=== PATIENT | female | born 1985 | race Caucasian/White ===

== ENCOUNTER 2016-05-14 19:23 | Emergency (ER) | payer OTHER ==
[2016-05-14 20:31] VITALS: BP 135/90
--- NOTE | 2016-05-14 20:51 | UC ---
Complaint Female HPI - HPI Summary HPI Summary: Patient was urinating and got pain in her lower abdomen with urination. lower abdomen remains tender and feels full. - History Of Current Complaint Chief Complaint: EDAbdPain Stated Complaint: RT SIDE NECK/STOMACH PAIN Time Seen by Provider: 05/14/16 20:35 Hx Obtained From: Patient Hx Last Menstrual Period: 04/30/16 ?: No Onset/Duration: Sudden Onset, Lasting Hours Timing: Intermittent Severity Initially: Moderate Severity Currently: Mild Character: Burning, Cramping Aggravating Factor(s): Urination Associated Signs And Symptoms: Positive: Negative - Allergies/Home Medications Allergies/Adverse Reactions: Allergies Allergy/AdvReac Type Severity Reaction Status Date / Time Aspirin Allergy Intermediate Hives Verified 05/14/16 20:31 Penicillins Allergy Unknown Verified 05/14/16 20:31 Reaction Details Home Medications: Home Medications Cetirizine* [ZyrTEC 10 MG TAB*] 10 mg PO DAILY 05/14/16 [History Confirmed 05/14] Levothyroxine TAB* [Synthroid 88 MCG TAB*] 88 mcg PO DAILY 05/14/16 [History Confirmed 05/14/16] PMH/Surg Hx/FS Hx/Imm Hx Previously Healthy: Yes Respiratory History Of: Reports: Asthma - Surgical History Surgical History: None - Family History Known Family History: Positive: Diabetes - Social History Alcohol Use: Occasionally Substance Use Type: None Smoking Status (MU): Never Smoked Tobacco Review of Systems Constitutional: Negative Skin: Negative Eyes: Negative ENT: Negative Respiratory: Negative Cardiovascular: Negative Gastrointestinal: Abdominal Pain Genitourinary: Dysuria Motor: Negative Neurovascular: Negative Musculoskeletal: Negative Neurological: Negative Psychological: Negative All Other Systems Reviewed And Are Negative: Yes Physical Exam Triage Information Reviewed: Yes Appearance: Well-Appearing, Well-Nourished, Pain Distress Vital Signs: Initial Vital Signs Temp 97.9 F 05/14/16 20:26 Pulse 83 05/14/16 20:26 Resp 16 05/14/16 20:26 BP 135/90 05/14/16 20:26 Pulse Ox 100 05/14/16 20:26 Vital Signs Reviewed: Yes Eye Exam: Normal ENT Exam: Normal Dental Exam: Normal Neck exam: Normal Neck: Positive: Supple, Nontender, No Lymphadenopathy Respiratory Exam: Normal Respiratory: Positive: Chest non-tender, Lungs clear, Normal breath sounds Cardiovascular Exam: Normal Cardiovascular: Positive: RRR, No Murmur, Pulses Normal Abdominal Exam: Other - lower abdominal tenderness, no rebound tenderness, no peritoneal irritation, changes of position do not change the dull pain. neg CVA tenderness, no palpable masses or organomegaly noted Abdomen Description: Positive: No Organomegaly, Soft Bowel Sounds: Positive: Present Musculoskeletal Exam: Normal Musculoskeletal: Positive: Strength Intact, ROM Intact Neurological Exam: Normal Neurological: Positive: Alert, Muscle Tone Normal Psychological Exam: Normal Skin Exam: Normal Complaint Female Dx - Course Course Of Treatment: hx obtained, exam performed, meds reviewed, UA positive for trace leuks. will treat for UTI, educated on increasing water intake and medications - Differential Dx/Diagnosis Differential Diagnosis/HQI/PQRI: Renal Colic, Retained Foreign Body, Ureteral Stone, Urinary Tract Infection Provider Diagnoses: UTI. lower abdominal pain Discharge - Discharge Plan Condition: Stable Disposition: HOME Patient Education Materials: Urinary Tract Infection in Women (ED) Additional Instructions: take the medication as prescribed. It appears you may have caught the symptoms early. Increase your fluid intake and follow up if symptoms persist.
[2016-05-14] MEDS ORDERED: Sulfamethox/Trimethoprim DS 800/160* TAB PO ONE (20:52)
== END 2016-05-14 20:57 | disposition home or self-care (01) ==
LOC: UCCORT 19:23
DX: N39.0 Urinary tract infection, site not specified (principal); R10.30 Lower abdominal pain, unspecified; Z88.6 Allergy status to analgesic agent; Z88.0 Allergy status to penicillin
CPT/HCPCS: 81003; 87077; 87086; 87186; 99202; A9270-GY; G0463

== ENCOUNTER 2016-07-02 09:27 | Emergency (ER) | payer OTHER ==
--- NOTE | 2016-07-02 09:53 | UC ---
Abdominal Pain Female HPI - HPI Summary HPI Summary: RLQ abd pain since yesterday 3pm. Some dysuria but no frequency. No fever, vomiting or diarrhea. she has no hx of abd surgery. No prior STD and last intercourse was about 1yr ago. - History of Current Complaint Chief Complaint: UCGU Stated Complaint: URINARY COMPLAINT/PELVIC PAIN Time Seen by Provider: 07/02/16 09:38 Hx Last Menstrual Period: 06/25/16 ?: No Onset/Duration: Gradual Onset Timing: Constant Severity Initially: Mild Severity Currently: Moderate Location: Discrete At: RLQ Radiates: No Radiates to: RLQ Character: Aching, Sharp Aggravating Factor(s): Nothing Alleviating Factor(s): Nothing Associated Signs and Symptoms: Positive: Urinary Symptoms. Negative: Diaphoresis, Fever, Cough, Chest Pain, Dizzy, Vaginal Bleeding, Vaginal Discharge, Nausea, Vomiting, Diarrhea Allergies/Adverse Reactions: Allergies Allergy/AdvReac Type Severity Reaction Status Date / Time Aspirin Allergy Intermediate Hives Verified 07/02/16 09:36 Penicillins Allergy Hives Verified 07/02/16 09:56 PMH/Surg Hx/FS Hx/Imm Hx Endocrine History Of: Reports: Thyroid Disease Respiratory History Of: Reports: Asthma - Surgical History Surgical History: None - Family History Known Family History: Positive: Diabetes - Social History Alcohol Use: Occasionally Substance Use Type: None Smoking Status (MU): Never Smoked Tobacco Review of Systems All Other Systems Reviewed And Are Negative: Yes Physical Exam Triage Information Reviewed: Yes Appearance: Well-Appearing, Well-Nourished, Obese Vital Signs: Initial Vital Signs Temp 98.1 F 07/02/16 09:30 Pulse 96 07/02/16 09:30 Resp 14 07/02/16 09:30 BP 141/84 07/02/16 09:30 Pulse Ox 100 07/02/16 09:30 Vital Signs Reviewed: Yes Eye Exam: Normal Eyes: Positive: Conjunctiva Clear. Negative: Conjunctiva Inflamed ENT Exam: Normal Neck exam: Normal Neck: Positive: Supple Respiratory Exam: Normal Cardiovascular Exam: Normal Abdominal Exam: Other - Mcburney's point tenderness. no rebound or guarding. she is able to change positions easily and ambulate to the BR without any overt signs of pain. Abdomen Description: Positive: Soft. Negative: CVA Tenderness (R), CVA Tenderness (L), Distended, Guarding, Peritoneal Signs, Pulsatile Mass Neurological Exam: Normal Psychological Exam: Normal Skin Exam: Normal - Additional Comments With Mikayla Comfort pelvic exam performed. No external or internal lesions. no discharge or bleeding. no cervical motion tenderness or adnexal tenderness. Abd Pain Female Course/Dx - Course Course Of Treatment: acute appendicitis. stable. Transfer at patient's request to [facility]. D/w Paula Fink who accepts patient. - Differential Dx/Diagnosis Provider Diagnoses: appendicitis. acute. no complications. Discharge - Discharge Plan Condition: Fair Disposition: TRANS HIGHER LVL OF CARE FAC
[2016-07-02] MEDS ORDERED: Iohexol 300* (CONTRAST) 10 ML SDV IV ONE (10:02)
--- NOTE | 2016-07-02 12:25 | RAD ---
Indication: Right lower quadrant tenderness. Contrast: Administered 150.1 ml of OMNIPAQUE 300 mg/ml CT of the abdomen and pelvis was performed after oral and IV contrast administration. Coronal and sagittal reconstructed images were obtained. The appendix is abnormal measuring up to 8 mm. Periappendiceal infiltration of fat is noted. There is thickening at the base of the cecum. Findings are consistent with acute appendicitis. The lung bases demonstrate no pleural fluid, nodules or masses. Heart is of normal size without evidence of pericardial effusion. The liver is limited in evaluation. No focal lesions or intrahepatic ductal dilatation is noted. The gallbladder demonstrates calcified gallstone. No pericholecystic fluid or wall thickening is identified. Common duct is not dilated. The pancreas demonstrates no mass or pancreatic duct dilatation. The spleen is normal in size. No acute lesions are noted. The kidneys demonstrate symmetric nephrograms without hydronephrosis. No dilated loops of bowel are noted. CT of the pelvis demonstrates urinary bladder to be unremarkable. Ovaries are unremarkable. Urinary bladder is unremarkable. No adenopathy is noted. IMPRESSION: Findings consistent with acute appendicitis. Findings discussed with Dr. Ramirez at 1220 hours.
[2016-07-02 13:00] VITALS: BP 145/97
[2016-07-02 13:50] LABS: Hematocrit 41 % (35-47); Hemoglobin 13.2 g/dl (12.0-16.0); Mean Corpuscular HGB Conc 33 g/dl (31-36); Mean Corpuscular Hemoglobin 26 pg (27-31); Mean Corpuscular Volume 81 fL (80-97); Mean Platelet Volume 7 um3 (7.4-10.4); Red Cell Distribution Width 14 % (10.5-15); White Blood Count 8.7 10^3/ul (3.5-10.8)
[2016-07-02 14:06] LABS: Albumin 4.1 g/dL (3.2-5.2); BUN/Creatinine Ratio 21.4 (8-20); Calcium 9.1 mg/dL (8.6-10.3); EGFR African American 127.2 (>60); EGFR Non-African American 98.9 (>60); Globulin 3.2 g/dL (2-4); Potassium 3.9 mmol/L (3.5-5.0); Total Bilirubin 0.4 mg/dL (0.2-1.0); Total Protein 7.3 g/dL (6.4-8.9)
== END 2016-07-02 13:00 | disposition short-term general hospital (02) ==
LOC: UCCORT 09:27
DX: K35.80 Unspecified acute appendicitis (principal); Z32.02 Encounter for pregnancy test, result negative; E07.9 Disorder of thyroid, unspecified; J45.909 Unspecified asthma, uncomplicated; E66.9 Obesity, unspecified; Z88.6 Allergy status to analgesic agent; Z88.0 Allergy status to penicillin
CPT/HCPCS: 36415; 74177; 80053; 81003; 84702; 85025; 87086; 87480; 87491; 87510; 87591; 87661; 99214; G0463; Q9967

== ENCOUNTER 2019-04-21 18:36 | Emergency (ER) | payer BC ==
[2019-04-21 20:49] VITALS: BP 150/88
--- NOTE | 2019-04-21 21:41 | UC ---
Eye Complaint HPI - HPI Summary HPI Summary: 33 yo female with the onset about 4 hours ago of R>L periorbital edema and tearing ichy eyes no fb sensation no cough or post nasal drip no visual complaints took benadryl 50 mg prior to arrival here - History of Current Complaint Chief Complaint: UCEye Stated Complaint: ITCHY EYES, CHEEK SWELLING Time Seen by Provider: 04/21/19 21:31 Hx Obtained From: Patient Hx Last Menstrual Period: "Sometime last month." Onset/Duration: Sudden Onset, Lasting Hours Timing: Constant Severity Currently: None Pain Intensity: 0 Pain Scale Used: 0-10 Numeric - Allergies/Home Medications Allergies/Adverse Reactions: Allergies Allergy/AdvReac Type Severity Reaction Status Date / Time aspirin Allergy Hives Verified 04/21/19 20:44 Penicillins Allergy Hives Verified 04/21/19 20:44 Home Medications: Home Medications Albuterol HFA INHALER* [Ventolin HFA Inhaler*] 2 puff INH Q6H PRN 12/05/11 [ History Confirmed 04/21/19] FLUoxetine CAP* [Prozac CAP*] 20 mg PO DAILY 12/05/11 [History Confirmed ] Cetirizine* [ZyrTEC 10 MG TAB*] 10 mg PO DAILY 05/14/16 [History Confirmed 04/20] Budesonide/Formote 80/4.5(NF) [Symbicort 80/4.5 (NF)] 1 puff INH BID 04/21/19 [ History Confirmed 04/21/19] Levothyroxine TAB* [Synthroid TAB*] 112 mcg PO DAILY 04/21/19 [History Confirmed 04/21/19] Methylphenidate ER TAB* [Concerta ER TAB*] 36 mg PO DAILY 04/21/19 [History Confirmed 04/21/19] diPHENhydraMINE PO* [Benadryl PO 25 MG TAB*] 50 mg PO Q6H PRN 04/21/19 [History Confirmed 04/21/19] PMH/Surg Hx/FS Hx/Imm Hx Previously Healthy: Yes - Surgical History Surgical History: Yes Surgery Procedure, Year, and Place: Appendectomy, 2017, [place] - Family History Known Family History: Positive: Hypertension, Diabetes - Social History Alcohol Use: Occasionally Substance Use Type: None Smoking Status (MU): Never Smoked Tobacco Review of Systems All Other Systems Reviewed And Are Negative: Yes Constitutional: Positive: Negative Skin: Positive: Negative Eyes: Positive: Eye Redness - slight, Other - lid edema ENT: Positive: Negative Respiratory: Positive: Negative Cardiovascular: Positive: Negative Gastrointestinal: Positive: Negative Genitourinary: Positive: Negative Motor: Positive: Negative Neurovascular: Positive: Negative Musculoskeletal: Positive: Negative Neurological/Mental Status: Positive: Negative Psychological: Positive: Negative Physical Exam Triage Information Reviewed: Yes Appearance: Well-Appearing, No Pain Distress, Well-Nourished Vital Signs: Initial Vital Signs Temp 98.6 F 04/21/19 20:41 Pulse 70 04/21/19 20:41 Resp 16 04/21/19 20:41 BP 150/88 04/21/19 20:41 Pulse Ox 98 04/21/19 20:41 Vital Signs Reviewed: Yes Eyes: Positive: Conjunctiva Inflamed, Other: - bilateral lid edema R>L ENT: Positive: Hearing grossly normal, Pharynx normal, TMs normal, Uvula midline. Negative: Nasal congestion, Nasal drainage, Tonsillar swelling, Tonsillar exudate, Trismus, Muffled voice, Hoarse voice Neck: Positive: Supple, Nontender, No Lymphadenopathy Respiratory: Positive: Lungs clear, Normal breath sounds, No respiratory distress Cardiovascular: Positive: RRR, No Murmur Abdomen Description: Positive: Nontender, No Organomegaly, Soft Bowel Sounds: Positive: Present Musculoskeletal: Positive: ROM Intact, No Edema Neurological: Positive: Alert Psychological Exam: Normal Skin Exam: Normal Eye Complaint Course/Dx - Differential Dx/Diagnosis Provider Diagnosis: Allergic conjunctivitis Discharge ED - Sign-Out/Discharge Documenting (check all that apply): Patient Departure All imaging exams completed and their final reports reviewed: No Studies - Discharge Plan Condition: Stable Disposition: HOME Patient Education Materials: Allergies (ED) Forms: *Work Release Referrals: Elli Weiner MD [Primary Care Provider] - 4 Days (if not better) Additional Instructions: cool compresses benadryl 25 mg 2 pills 4x day if needed this appears to be due to an allergic reaction Zaditor eye drops OTC if needed - Billing Disposition and Condition Condition: STABLE Disposition: Home
== END 2019-04-21 21:49 | disposition home or self-care (01) ==
LOC: UCCORT 18:36
DX: H10.13 Acute atopic conjunctivitis, bilateral (principal); Z88.0 Allergy status to penicillin; Z88.6 Allergy status to analgesic agent
CPT/HCPCS: 99211; G0463